=== PATIENT | male | born 1955 | race African-American/Black ===

== ENCOUNTER 2021-10-02 13:17 | Emergency (ER) | payer MEDICAID ==
[~2021-10-02] VITALS: Ht 182.9 cm; Wt 90.0 kg
[2021-10-02 17:26] VITALS: BP 147/76
== END 2021-10-02 17:28 | disposition home or self-care (01) ==
LOC: ER 13:35
DX: T40.991A Poisoning by other psychodysleptics [hallucinogens], accidental (unintentional), initial encounter (principal); F16.129 Hallucinogen abuse with intoxication, unspecified; R41.82 Altered mental status, unspecified; F12.929 Cannabis use, unspecified with intoxication, unspecified; R03.0 Elevated blood-pressure reading, without diagnosis of hypertension; Z71.51 Drug abuse counseling and surveillance of drug abuser; Y92.488 Other paved roadways as the place of occurrence of the external cause
CPT/HCPCS: 99283